=== PATIENT | female | born 1985 | race Caucasian/White ===

== ENCOUNTER 2020-03-17 10:28 | Outpatient (REF) | payer OTHER, SELFPAY ==
[2020-03-18 04:02] LABS: CT PCR NOT DETECTED (Not Detect.); NG PCR NOT DETECTED (Not Detect.)
[2020-03-18 11:59] LABS: BV Int Neg Control Negative (Negative); BV Int Pos Control Positive (Positive)
[2020-03-18 20:25] LABS: Syphilis Screen Nonreactive (Nonreactive)
[2020-03-21 08:37] LABS: HBS Num1 51.78 mIU/mL (0-7.99); HBsAGNum1 0.27 S/CO (0.00-0.99); HIV AB/AG Nonreactive (Nonreactive); HIV Num 1 0.09 S/CO (0.00-0.99); Hepatitis B Core Antibody Nonreactive (Nonreactive); Hepatitis B Surface Antigen Negative (Negative); ~Hepatitis B Surface Antibody REACTIVE (Nonreactive)
[2020-03-21 09:42] LABS: ~HepC Num1 0.18 S/CO (0.00-0.79); ~Hepatitis C Antibody Nonreactive (Nonreactive)
== END 2020-03-17 10:29 | disposition home or self-care (01) ==
LOC: HO.LAB 10:28
PROVIDERS: PCP Pediatrics; Visit Provider Advanced Practice Midwife
DX: Z11.3 Encounter for screening for infections with a predominantly sexual mode of transmission (principal); Z20.2 Contact with and (suspected) exposure to infections with a predominantly sexual mode of transmission; N89.8 Other specified noninflammatory disorders of vagina
CPT/HCPCS: 86704; 86706; 86780; 86803; 87340; 87389; 87480; 87491; 87510; 87591; 87660; 99213

== ENCOUNTER 2020-04-26 13:21 | Outpatient (REF) | payer OTHER, SELFPAY ==
[2020-04-29 18:32] LABS: HPV 16 RNA DETECTED (NOT DETECTED); HPV mRNA E6/E7 rflx Detected (Not Detected)
== END 2020-04-26 13:22 | disposition home or self-care (01) ==
LOC: HO.LAB 13:21
PROVIDERS: Visit Provider Advanced Practice Midwife
DX: Z01.419 Encounter for gynecological examination (general) (routine) without abnormal findings (principal); Z87.42 Personal history of other diseases of the female genital tract; Z20.2 Contact with and (suspected) exposure to infections with a predominantly sexual mode of transmission
CPT/HCPCS: 87624; 87625; 88141; 88142

== ENCOUNTER → 2020-05-18 15:40 | Outpatient (BNVA) | payer OTHER, SELFPAY | PROVIDERS: Visit Provider Advanced Practice Midwife | DX: Z30.42 Encounter for surveillance of injectable contraceptive (principal) | CPT/HCPCS: 96372; 99211; J1050 ==

== ENCOUNTER 2020-05-27 10:30 | Outpatient (REF) | payer OTHER, SELFPAY ==
[2020-05-29 11:59] LABS: BV Int Neg Control Negative (Negative); BV Int Pos Control Positive (Positive)
== END 2020-05-27 10:31 | disposition home or self-care (01) ==
LOC: HO.LAB 10:30
PROVIDERS: PCP Pediatrics; Visit Provider Advanced Practice Midwife
DX: N89.8 Other specified noninflammatory disorders of vagina (principal); Z20.2 Contact with and (suspected) exposure to infections with a predominantly sexual mode of transmission
CPT/HCPCS: 87480; 87510; 87660; 99212

== ENCOUNTER 2020-06-21 07:50 | Outpatient (REF) | payer OTHER, SELFPAY | END 2020-06-21 07:51 | disposition home or self-care (01) | LOC: HO.LAB 07:50 | PROVIDERS: PCP Pediatrics; Visit Provider Obstetrics & Gynecology | DX: R87.810 Cervical high risk human papillomavirus (HPV) DNA test positive (principal) | CPT/HCPCS: 57454; 81025; 88305 ==

== ENCOUNTER → 2020-07-05 11:30 | Outpatient (BNVA) | payer OTHER, SELFPAY | PROVIDERS: PCP Pediatrics; Visit Provider Obstetrics & Gynecology ==

== ENCOUNTER → 2020-08-12 12:58 | Outpatient (BNVA) | payer OTHER, SELFPAY | PROVIDERS: PCP Pediatrics; Visit Provider Advanced Practice Midwife | DX: Z30.42 Encounter for surveillance of injectable contraceptive (principal) | CPT/HCPCS: 96372; 99211 ==

== ENCOUNTER → 2020-11-02 10:54 | Outpatient (BNVA) | payer OTHER, SELFPAY | PROVIDERS: PCP Pediatrics; Visit Provider Advanced Practice Midwife | DX: Z30.42 Encounter for surveillance of injectable contraceptive (principal) | CPT/HCPCS: 96372; 99211; J1050 ==

== ENCOUNTER → 2021-01-24 08:56 | Outpatient (BNVA) | payer OTHER, SELFPAY | PROVIDERS: PCP Pediatrics; Visit Provider Advanced Practice Midwife | DX: Z30.42 Encounter for surveillance of injectable contraceptive (principal) | CPT/HCPCS: 96372; 99211 ==

== ENCOUNTER 2021-04-27 13:24 | Outpatient (REF) | payer OTHER, SELFPAY ==
[2021-04-28 08:51] LABS: CT PCR NOT DETECTED (Not Detect.); NG PCR NOT DETECTED (Not Detect.)
[2021-05-03 09:41] LABS: HPV 16 RNA DETECTED (NOT DETECTED); HPV mRNA E6/E7 rflx Detected (Not Detected)
== END 2021-04-27 13:25 | disposition home or self-care (01) ==
LOC: HO.LAB 13:24
PROVIDERS: PCP Pediatrics; Visit Provider Advanced Practice Midwife
DX: Z01.419 Encounter for gynecological examination (general) (routine) without abnormal findings (principal)
CPT/HCPCS: 87491; 87591; 87624; 87625; 88142

== ENCOUNTER 2021-06-03 14:56 | Emergency (ER) | payer OTHER, SELFPAY ==
[2021-06-03 15:21] VITALS: BP 115/70; PULSE 80; RESP 19; TEMP 36.6; O2SAT 98; BMI 33.2
[2021-06-03 15:59] LABS: MANUAL DIFF FLAG NO
[2021-06-03 16:04] LABS: Basophils Absolute Auto 0.1 X10*3/uL (0.0-0.2); Basophils Percent Auto 0.8 % (0-2); Eosinophils Absolute Auto 0.3 X10*3/uL (0.0-0.4); Eosinophils Percent Auto 4.6 % (0-4); Hematocrit 41.5 % (37.0-47.0); Hemoglobin 14.1 g/dl (12.0-16.0); Imm Gran Abs Auto 0.01 X10*3/uL (0.00-0.03); Imm Gran Pct Auto 0.2 % (0.0-0.4); Lymphocytes Percent Auto 32.4 % (20-40); Mean Corpuscular Hemoglobin 31.1 pg (27.0-33.0); Mean Corpuscular Volume 91.4 fL (80.0-98.0); Mean Platelet Volume 8.9 fL (9.4-12.3); Monocytes Absolute Auto 0.5 X10*3/uL (0.1-1.2); Neutrophils Absolute Auto 3.3 x10*3/uL (2.0-8.3); Platelet Count 217 X10*3/uL (160-400); Red Blood Count 4.54 X10*6/uL (4.20-5.50); White Blood Count 6.1 X10*3/uL (4.8-10.8)
[2021-06-03 16:14] LABS: Appearance Urine CLEAR; Color Urine YELLOW; Glucose Urine UA NEG (NEG); Leukocyte Esterase Urine NEG (NEG); Nitrite Urine NEG (NEG); Specific Gravity - Urine <= 1.005 (1.005-1.025); Urine Blood NEG (NEG); Urine Ketones NEG (NEG); Urine Protein NEG (NEG-TRACE)
[2021-06-03 16:17] LABS: Anion Gap 11 (12-20); Blood Urea Nitrogen 10 mg/dL (9-16); Calcium 9.5 mg/dL (8.4-10.2); Carbon Dioxide 24 mmol/L (22-29); Chloride 108 mmol/L (96-108); Creatinine Clr Calc Pharmacy 80.2; Estimated Glomerular Filt Rate > 60; Glucose Random 86 mg/dL (60-115); Potassium 3.9 mmol/L (3.3-5.1); Sodium 139 mmol/L (135-145); UPreg QC Valid YES; Urine Pregnancy NEGATIVE (NEGATIVE)
== END 2021-06-03 19:18 | disposition left against medical advice (07) ==
PROVIDERS: Emergency Provider Emergency Medicine
DX: R10.2 Pelvic and perineal pain (principal); M54.50 Low back pain, unspecified
CPT/HCPCS: 36415; 80048; 81003; 81025; 85025; 99283

== ENCOUNTER 2022-01-22 16:08 | Emergency (ER) | payer MEDICAID, SELFPAY ==
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
[2022-01-22 18:09] VITALS: BP 112/83; PULSE 61; RESP 18; TEMP 37; O2SAT 100; BMI 33.3
[2022-01-22 20:10] VITALS: BP 107/61; PULSE 60; RESP 14; TEMP 36.5; O2SAT 99
[2022-01-22] MEDS: Ketorolac Tromethamine 30 MG/ML VIAL IM (20:20)
[2022-01-22] MEDS: Lidocaine 4 % Patch ADH..PATCH 1 PATCH TRANSDERMA (20:20)
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
[2022-01-22 21:44] VITALS: BP 115/71; PULSE 61; RESP 16; O2SAT 98
== END 2022-01-22 21:49 | disposition home or self-care (01) ==
PROVIDERS: Emergency Provider Internal Medicine
DX: M50.123 Cervical disc disorder at C6-C7 level with radiculopathy (principal)
CPT/HCPCS: 72125; 96372; 99283; 99284; J1885